=== PATIENT | female | born 1995 | race Caucasian/White ===

== ENCOUNTER 2016-10-09 19:42 | Inpatient (IN) | payer OTHER ==
[2016-10-09 20:26] LABS: Hematocrit 39 % (35-47); Hemoglobin 12.4 g/dl (12.0-16.0); Mean Corpuscular HGB Conc 32 g/dl (31-36); Mean Corpuscular Hemoglobin 29 pg (27-31); Mean Corpuscular Volume 91 fL (80-97); Mean Platelet Volume 9 um3 (7.4-10.4); Red Blood Count 4.24 10^6/ul (4.0-5.4); Red Cell Distribution Width 13 % (10.5-15); White Blood Count 25.8 10^3/ul (3.5-10.8)
[2016-10-09 20:30] LABS: Add Diff/Slide Review? Slide Review Added; Comments Flag Yes
[2016-10-09] MEDS ORDERED: NS 0.9% 1000 ML* 1,000 ML IV ONE (20:40)
[2016-10-09 20:48] LABS: ALT 17 U/L (7-52); AST 18 U/L (13-39); Albumin 4.2 g/dL (3.2-5.2); Alkaline Phosphatase 65 U/L (34-104); BUN/Creatinine Ratio 15.2 (8-20); Blood Urea Nitrogen 15 mg/dL (6-24); Calcium 8.7 mg/dL (8.6-10.3); Chloride 102 mmol/L (101-111); EGFR African American 89.4 (>60); EGFR Non-African American 69.5 (>60); Glucose 192 mg/dL (70-100); Sodium 134 mmol/L (133-145); Total Protein 7.2 g/dL (6.4-8.9)
[2016-10-09] MEDS ORDERED: Ondansetron INJ* 2 MG/ML VIAL ONE ×2 (20:49→21:47)
[2016-10-09] MEDS ORDERED: Ondansetron INJ* 2 MG/ML VIAL IV ONE ×2 (20:49→21:49)
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
[2016-10-09 20:52] LABS: Potassium 2.5 mmol/L (3.5-5.0)
[2016-10-09 20:54] LABS: Acetaminophen < 15 mcg/mL; Alcohol < 10 mg/dL (<10); Salicylate < 2.50 mg/dL (<30)
[2016-10-09 20:57] LABS: TSH (Thyroid Stimulating Horm) 1.31 mcIU/mL (0.34-5.60)
[2016-10-09] MEDS ORDERED: Potassium Chloride LIQUID* 20 MEQ PACKET PO ONE (20:58)
[2016-10-09 21:05] LABS: Anion Gap 21 mmol/L (2-11); CO2 Carbon Dioxide 11 mmol/L (22-32)
[2016-10-09] MEDS ORDERED: KCL 10 MEQ/50 ML IVPREMIX* 10 MEQ/50 ML BAG ONE (21:05)
--- NOTE | 2016-10-09 21:14 | RAD ---
INDICATION: Altered mental status COMPARISON: CT brain October 23, 2012 TECHNIQUE: Noncontrast axial source images were acquired from the skull base to the vertex. FINDINGS: Ventricles/sulci: The ventricles and cisterns are normal in size and configuration for age. Brain parenchyma: There is no focal parenchymal finding, evidence of intracranial mass, or intracranial mass effect. Intracranial hemorrhage:None. Extra-axial spaces: There are no abnormal extra axial fluid collections or evidence of extra-axial mass. Calvarium: There is no calvarial fracture or other calvarial abnormality. Scalp: There is no evidence of scalp or extracalvarial soft tissue abnormality. Paranasal sinuses/mastoid: The paranasal sinuses and mastoid air cells are clear. Other: None. IMPRESSION: NEGATIVE EXAMINATION
[2016-10-09] MEDS: KCL 10 MEQ/50 ML IVPREMIX* 10 MEQ/50 ML BAG IV SCH ×2 (21:16→22:25)
[2016-10-09 21:30] LABS: Magnesium 2.4 mg/dL (1.9-2.7)
[2016-10-09 21:38] LABS: Urine Bacteria Absent (Absent); Urine Bilirubin Negative (Negative); Urine Glucose Negative (Negative); Urine Nitrite Negative (Negative)
[2016-10-09 21:44] LABS: Benzodiazepine Urine Screen Presumptive Positive (None Detect)
[2016-10-09] MEDS ORDERED: Metoclopramide IV* 5 MG/ML 2 ML VIAL IV ONE (22:04)
[2016-10-09] MEDS ORDERED: Metoclopramide IV* 5 MG/ML 2 ML VIAL ONE (22:04)
[2016-10-09 22:19] LABS: FIO2 21; PCO2 Arterial 21 mmHg (35-45)
--- NOTE | 2016-10-09 22:30 | RAD ---
INDICATION: Fever COMPARISON: June 02, 2012 TECHNIQUE: PA and lateral dual-energy views were obtained. FINDINGS: Bones/Soft Tissues: There are no acute bony findings. Cardiomediastinal: The cardiomediastinal silhouette is normal. Lungs: There are no infiltrates. Pleura: There are no pleural effusions. Other: None IMPRESSION: NO ACTIVE DISEASE.
[2016-10-10 00:53] LABS: Hematocrit 32 % (35-47); Hemoglobin 10.8 g/dl (12.0-16.0); Mean Corpuscular HGB Conc 34 g/dl (31-36); Mean Corpuscular Hemoglobin 29 pg (27-31); Mean Corpuscular Volume 87 fL (80-97); Mean Platelet Volume 9 um3 (7.4-10.4); Red Cell Distribution Width 13 % (10.5-15); White Blood Count 22.6 10^3/ul (3.5-10.8)
[2016-10-10 00:56] LABS: Add Diff/Slide Review? Slide Review Added; Comments Flag Yes
[2016-10-10 01:04] LABS: BUN/Creatinine Ratio 18.1 (8-20); Calcium 8.4 mg/dL (8.6-10.3); EGFR African American 94.9 (>60); EGFR Non-African American 73.8 (>60); Potassium 3.3 mmol/L (3.5-5.0)
[2016-10-10 01:38] LABS: Albumin 3.5 g/dL (3.2-5.2); Globulin 2.6 g/dL (2-4); Total Bilirubin 0.7 mg/dL (0.2-1.0); Total Protein 6.1 g/dL (6.4-8.9)
[2016-10-10] MEDS: KCL 10 MEQ/50 ML IVPREMIX* 10 MEQ/50 ML BAG IV SCH (01:39)
[2016-10-10] MEDS: NS 0.9% 1000 ML* 1,000 ML IV SCH ×3 (03:21→23:45)
[2016-10-10 05:49] LABS: Hematocrit 32 % (35-47); Hemoglobin 10.8 g/dl (12.0-16.0); Mean Corpuscular HGB Conc 34 g/dl (31-36); Mean Corpuscular Hemoglobin 30 pg (27-31); Mean Corpuscular Volume 88 fL (80-97); Mean Platelet Volume 10 um3 (7.4-10.4); Red Blood Count 3.63 10^6/ul (4.0-5.4); Red Cell Distribution Width 13 % (10.5-15); White Blood Count 20.9 10^3/ul (3.5-10.8)
[2016-10-10 06:06] LABS: BUN/Creatinine Ratio 13.9 (8-20); Calcium 8.4 mg/dL (8.6-10.3); EGFR African American 61.4 (>60); EGFR Non-African American 47.8 (>60); Potassium 3.8 mmol/L (3.5-5.0)
[2016-10-10] MEDS: Ibuprofen TAB* 600 MG PO PRN ×2 (09:41→19:52)
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
[2016-10-10] MEDS: Nicotine PATCH 14 MG/24 HR* PATCH TRANSDERM SCH (17:07)
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
[2016-10-10] MEDS: Nicotine Patch Removal NOTE PATCH OFF SCH (20:33)
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
--- NOTE | 2016-10-11 01:25 | EEG ---
ELECTROENCEPHALOGRAPHY: DATE OF STUDY: 10/10/16 LOCATION: The patient is an inpatient. ORDERING PHYSICIAN: DICTATION ENDS ABRUPTLY HERE [id number]/[facility] #: [id number]
[2016-10-11] MEDS: Ibuprofen TAB* 600 MG PO PRN ×3 (02:30→16:22)
[2016-10-11 06:21] LABS: Hematocrit 33 % (35-47); Hemoglobin 11.1 g/dl (12.0-16.0); Mean Corpuscular HGB Conc 34 g/dl (31-36); Mean Corpuscular Hemoglobin 30 pg (27-31); Mean Corpuscular Volume 89 fL (80-97); Mean Platelet Volume 9 um3 (7.4-10.4); Red Blood Count 3.73 10^6/ul (4.0-5.4); Red Cell Distribution Width 14 % (10.5-15); White Blood Count 17.2 10^3/ul (3.5-10.8)
[2016-10-11 06:41] LABS: Albumin 3.1 g/dL (3.2-5.2); BUN/Creatinine Ratio 8.7 (8-20); Calcium 7.9 mg/dL (8.6-10.3); Direct Bilirubin 0.2 mg/dL (0.03-0.18); EGFR African American 35.9 (>60); Globulin 2.4 g/dL (2-4); Indirect Bilirubin 0.4 mg/dL (0.3-1.0); Potassium 3.2 mmol/L (3.5-5.0); Total Bilirubin 0.6 mg/dL (0.2-1.0); Total Protein 5.5 g/dL (6.4-8.9)
[2016-10-11] MEDS: Nicotine PATCH 14 MG/24 HR* PATCH TRANSDERM SCH (07:40)
[2016-10-11] MEDS: NS 0.9% 1000 ML* 1,000 ML IV SCH ×4 (07:41→18:04)
[2016-10-11] MEDS ORDERED: Potassium Chlor TAB* 20 MEQ TAB.ER PO ONE ×2 (13:45→21:50)
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
--- NOTE | 2016-10-11 14:21 | RAD ---
INDICATION: Renal failure COMPARISON: None TECHNIQUE: Longitudinal and transverse scans of the kidneys and bladder were obtained. FINDINGS: Kidneys: The kidneys are normal in size. There is mild increased echogenicity. No renal masses, calculi, or hydronephrosis is seen. The right kidney measures 12.2 x 4.8 x 5.0 cm and the left kidney 12.6 x 5.5 x 5.8 cm. Bladder: The bladder is partially distended. There are no intrinsic or extrinsic masses. The prevoid volume is 109 ml and the postvoid volume is for ml. Ureteral jets are document bilaterally. Other: None IMPRESSION: MILD INCREASED ECHOGENICITY OF THE KIDNEYS. NO HYDRONEPHROSIS. THE EXAMINATION IS OTHERWISE UNREMARKABLE..
[2016-10-11 15:51] LABS: EGFR African American 37.5 (>60); EGFR Non-African American 29.2 (>60); Potassium 3.1 mmol/L (3.5-5.0)
[2016-10-11] MEDS ORDERED: NS 0.9% 1000 ML* 1,000 ML IV ONE (16:32)
[2016-10-11] MEDS: Nicotine Patch Removal NOTE PATCH OFF SCH (21:36)
[2016-10-12] MEDS: Acetaminophen TAB* 325 MG PO PRN ×3 (00:21→16:24)
[2016-10-12 07:43] LABS: Hematocrit 33 % (35-47); Mean Corpuscular HGB Conc 33 g/dl (31-36); Mean Corpuscular Hemoglobin 30 pg (27-31); Mean Corpuscular Volume 90 fL (80-97); Mean Platelet Volume 10 um3 (7.4-10.4); Red Blood Count 3.68 10^6/ul (4.0-5.4); Red Cell Distribution Width 13 % (10.5-15); White Blood Count 12.3 10^3/ul (3.5-10.8)
[2016-10-12] MEDS: Nicotine PATCH 14 MG/24 HR* PATCH TRANSDERM SCH (07:51)
[2016-10-12 07:57] LABS: BUN/Creatinine Ratio 8.9 (8-20); Calcium 8.2 mg/dL (8.6-10.3); EGFR African American 48.2 (>60); EGFR Non-African American 37.5 (>60); Potassium 3.7 mmol/L (3.5-5.0)
[2016-10-12] MEDS: NS 0.9% 1000 ML* 1,000 ML IV SCH ×2 (13:23→22:25)
--- NOTE | 2016-10-12 15:08 | PN ---
Subjective Date of Service: 10/12/16 Interval History: Still describes muscles aching predominantly in thighs and back Thinks she may have had a cold in the last several weeks IV fell out and was not receiving fluids overnight until noon today I/O not collected accurately until this afternoon. Objective Active Medications: Acetaminophen (Tylenol Tab*) 650 mg PO Q6H PRN PRN Reason: PAIN Last Admin: 10/12/16 07:52 Dose: 650 mg Sodium Chloride (Ns 0.9% 1000 Ml*) 1,000 mls @ 250 mls/hr IV PER RATE [facility] Last Admin: 10/12/16 13:23 Dose: 250 mls/hr Nicotine (Nicotine Patch 14 Mg/24 Hr*) 1 patch TRANSDERM 0800 [facility] Last Admin: 10/12/16 07:51 Dose: 1 patch Pharmacy Profile Note (Nicotine Patch Removal Note*) 1 note PATCH OFF 2100 [facility] Last Admin: 10/11/16 21:36 Dose: 1 note Vital Signs 10/11/16 10/11/16 10/11/16 19:17 20:00 23:35 Temperature 98.0 F 98.5 F Pulse Rate 103 93 Respiratory 16 16 19 Rate Blood Pressure 135/84 144/92 (mmHg) O2 Sat by Pulse 98 93 Oximetry 10/12/16 10/12/16 07:36 08:00 Temperature 99.3 F Pulse Rate 93 Respiratory 16 18 Rate Blood Pressure 140/83 (mmHg) O2 Sat by Pulse 94 Oximetry Oxygen Devices in Use Now: None Appearance: NAD Eyes: No Scleral Icterus, PERRLA Ears/Nose/Mouth/Throat: NL Teeth, Lips, Gums, Clear Oropharnyx, Mucous Membranes Moist Neck: NL Appearance and Movements; NL JVP, Trachea Midline Respiratory: Symmetrical Chest Expansion and Respiratory Effort, Clear to Auscultation Cardiovascular: NL Sounds; No Murmurs; No JVD, RRR Abdominal: NL Sounds; No Tenderness; No Distention, No Hepatosplenomegaly Lymphatic: No Cervical Adenopathy, No Axillary Adenopathy Extremities: No Edema Skin: No Rash or Ulcers Neurological: Alert and Oriented x 3 Result Diagrams: 10/12/16 05:26 10/12/16 05:26 Additional Lab and Data: Lab Results 10/09/16 10/09/16 Range/Units 20:00 20:00 WBC 25.8 H (3.5-10.8) 10^3/ul RBC 4.24 (4.0-5.4) 10^6/ul Hgb 12.4 (12.0-16.0) g/dl Hct 39 (35-47) % MCV 91 (80-97) fL MCH 29 (27-31) pg MCHC 32 (31-36) g/dl RDW 13 (10.5-15) % Plt Count 322 (150-450) 10^3/ul MPV 9 (7.4-10.4) um3 Neut % (Auto) 80.6 (38-83) % Lymph % (Auto) 14.3 L (25-47) % [place] % (Auto) 4.1 (1-9) % Eos % (Auto) 0.4 (0-6) % Baso % (Auto) 0.6 (0-2) % Absolute Neuts (auto) 20.8 H (1.5-7.7) 10^3/ul Absolute Lymphs (auto) 3.7 (1.0-4.8) 10^3/ul Absolute Monos (auto) 1.1 H (0-0.8) 10^3/ul Absolute Eos (auto) 0.1 (0-0.6) 10^3/ul Absolute Basos (auto) 0.1 (0-0.2) 10^3/ul Absolute Nucleated RBC 0 10^3/ul Nucleated RBC % 0 Sodium 134 (133-145) mmol/L Potassium Pending Chloride 102 (101-111) mmol/L Carbon Dioxide Pending Anion Gap Pending BUN 15 (6-24) mg/dL Creatinine 0.99 H (0.51-0.95) mg/dL Est GFR ( Amer) 89.4 (>60) Est GFR (Non-Af Amer) 69.5 (>60) BUN/Creatinine Ratio 15.2 (8-20) Glucose 192 H (70-100) mg/dL Calcium 8.7 (8.6-10.3) mg/dL Total Bilirubin 0.40 (0.2-1.0) mg/dL AST 18 (13-39) U/L ALT 17 (7-52) U/L Alkaline Phosphatase 65 (34-104) U/L Total Protein 7.2 (6.4-8.9) g/dL Albumin 4.2 (3.2-5.2) g/dL Globulin 3.0 (2-4) g/dL Albumin/Globulin Ratio 1.4 (1-3) TSH Pending Salicylates Pending Acetaminophen Pending Serum Alcohol Pending Assess/Plan/Problems-Billing Assessment: 21 yo F h/o bulemia, heavy alcohol use, drug use including "hema" and cocaine, presents after found "flailing her arms around" on the road. EMS reports detail further events at time of arrival, please see scanned documents. - Patient Problems (1) Altered mental state Comment: Resolved without intervention Has elevated WBC without neck stiffness, fevers. Mental status resolved without intervention other than crystalloids. Given other substance abuse problems I do suspect other drug not screened for on our tests may have contributed to sudden change in mental status with complete resolution EEG wnl Monitor given elevated WBC. Abx if fails to improve, e/o infx, or fevers (2) Alcohol abuse Comment: counseled cessation drinks daily, sometimes at lunch when at work will not say how much she consumes daily pre contemplative (3) Acute kidney injury Comment: improved CK increasing Has Rhabdomyolysis Increase NS to 250cc/hr repeat CK tonight. NS restarted around noon (4) Polysubstance abuse Comment: counseled cessation (5) Bulimia Comment: follows with psych in [place] (6) DVT prophylaxis Comment: low risk ambulate ad zoë
[2016-10-12] MEDS ORDERED: Potassium Chlor TAB* 20 MEQ TAB.ER PO ONE (21:50)
[2016-10-12] MEDS: Nicotine Patch Removal NOTE PATCH OFF SCH (22:26)
[2016-10-13] MEDS: NS 0.9% 1000 ML* 1,000 ML IV SCH ×2 (02:43→07:15)
[2016-10-13] MEDS: diPHENhydraMINE PO* 25 MG PO PRN (04:31)
[2016-10-13] MEDS: Acetaminophen TAB* 325 MG PO PRN ×2 (04:33→21:31)
[2016-10-13 06:04] LABS: Hematocrit 30 % (35-47); Hemoglobin 10.1 g/dl (12.0-16.0); Mean Corpuscular HGB Conc 33 g/dl (31-36); Mean Corpuscular Hemoglobin 30 pg (27-31); Mean Corpuscular Volume 89 fL (80-97); Mean Platelet Volume 9 um3 (7.4-10.4); Red Blood Count 3.39 10^6/ul (4.0-5.4); Red Cell Distribution Width 13 % (10.5-15); White Blood Count 13.2 10^3/ul (3.5-10.8)
[2016-10-13 06:21] LABS: BUN/Creatinine Ratio 7.2 (8-20); Calcium 7.8 mg/dL (8.6-10.3); EGFR African American 68.3 (>60); EGFR Non-African American 53.1 (>60); Potassium 3.3 mmol/L (3.5-5.0)
--- NOTE | 2016-10-13 07:48 | RAD ---
INDICATION: Shortness of breath. COMPARISON: Comparison is made with a prior study from October 09, 2016. TECHNIQUE: A portable view of the chest was obtained. FINDINGS: Cardiac and mediastinal contours appear to be within normal limits. There are new faint patchy bilateral infiltrates. No pleural effusion is seen. IMPRESSION: NEW PATCHY BILATERAL INFILTRATES.
[2016-10-13] MEDS: Nicotine PATCH 14 MG/24 HR* PATCH TRANSDERM SCH (08:08)
[2016-10-13 08:40] LABS: C Reactive Protein 107.27 mg/L (< 5.00)
[2016-10-13] MEDS ORDERED: Vancomycin(*) 1,500 MG in NS 0.9% 250 ML* 250 ML IVPB ONE (09:00)
[2016-10-13] MEDS ORDERED: Vancomycin per Pharmacy* NOTE FOLLOW UP PRN (09:56)
[2016-10-13 10:17] LABS: Erythrocyte Sed Rate 72 mm/Hr (0-14)
[2016-10-13 15:38] LABS: Calcium 8.3 mg/dL (8.6-10.3); EGFR African American 75.2 (>60); EGFR Non-African American 58.5 (>60); Potassium 3.2 mmol/L (3.5-5.0)
[2016-10-13] MEDS ORDERED: Furosemide IV* 10 MG/ML VIAL (40 MG) IV SLOW PU ONE (16:26)
[2016-10-13] MEDS ORDERED: Potassium Chlor TAB* 20 MEQ TAB.ER PO ONE (16:31)
--- NOTE | 2016-10-13 16:37 | PN ---
Subjective Date of Service: 10/13/16 Interval History: Seen multiple times throughout the day Reported SOB overnight but none this AM Reported SOB this afternoon again Was placed on a safety monitor after she was heard vomiting in the bathroom then changed to bed alarm. Pt and mother upset about bed alarm because it is "increasing her anxiety." She promises not to vomit or use the bathroom without notifying staff. I declined to dc bed alarm at this time Pt has not been adherent with I/O. SHe takes out hat from urinal then "reports" how much she has been urinating. Only 800cc recorded over last 24 hr and patient reports "urinating a lot." Objective Active Medications: Acetaminophen (Tylenol Tab*) 650 mg PO Q6H PRN PRN Reason: PAIN Last Admin: 10/13/16 04:33 Dose: 650 mg Diphenhydramine HCl (Benadryl Po*) 25 mg PO BEDTIME PRN PRN Reason: INSOMNIA Last Admin: 10/13/16 04:31 Dose: 25 mg Lactated Ringer's (Lactated Ringers 1000 Ml Bag*) 1,000 mls @ 250 mls/hr IV PER RATE [facility] Last Admin: 10/13/16 14:29 Dose: 250 mls/hr Nicotine (Nicotine Patch 14 Mg/24 Hr*) 1 patch TRANSDERM 0800 [facility] Last Admin: 10/13/16 08:08 Dose: 1 patch Pharmacy Profile Note (Nicotine Patch Removal Note*) 1 note PATCH OFF 2100 [facility] Last Admin: 10/12/16 22:26 Dose: 1 note Potassium Chloride (Klor Con Er Tab*) 40 meq PO ONCE ONE Stop: 10/13/16 16:32 Vital Signs 10/12/16 10/12/16 10/12/16 19:43 20:00 23:24 Temperature 98.1 F 99.5 F Pulse Rate 118 103 Respiratory 28 16 Rate Blood Pressure 144/77 142/96 (mmHg) O2 Sat by Pulse 97 94 Oximetry 10/13/16 10/13/16 10/13/16 03:00 03:25 04:31 Temperature 98.6 F Pulse Rate 106 Respiratory 32 16 22 Rate Blood Pressure 145/102 (mmHg) O2 Sat by Pulse 90 Oximetry 10/13/16 10/13/16 10/13/16 06:31 07:39 09:44 Temperature 97.8 F Pulse Rate 85 Respiratory 28 16 18 Rate Blood Pressure 130/86 (mmHg) O2 Sat by Pulse 93 Oximetry 10/13/16 15:55 Temperature 99.0 F Pulse Rate 101 Respiratory 24 Rate Blood Pressure 155/90 (mmHg) O2 Sat by Pulse 91 Oximetry Oxygen Devices in Use Now: Nasal Cannula - 2L Appearance: NAD, anxious, talks in full sentences Eyes: No Scleral Icterus, PERRLA Ears/Nose/Mouth/Throat: Clear Oropharnyx, Mucous Membranes Moist Neck: NL Appearance and Movements; NL JVP, Trachea Midline Respiratory: Symmetrical Chest Expansion and Respiratory Effort, Clear to Auscultation, - - clear Cardiovascular: NL Sounds; No Murmurs; No JVD, RRR Abdominal: NL Sounds; No Tenderness; No Distention, No Hepatosplenomegaly Lymphatic: No Cervical Adenopathy Extremities: No Clubbing, Cyanosis, - - edematous in arms, mild tenderness in legs, Skin: - - bruising over wrists and upper arms Neurological: Alert and Oriented x 3 Result Diagrams: 10/13/16 05:32 10/13/16 14:57 Additional Lab and Data: Lab Results 10/09/16 10/09/16 Range/Units 20:00 20:00 WBC 25.8 H (3.5-10.8) 10^3/ul RBC 4.24 (4.0-5.4) 10^6/ul Hgb 12.4 (12.0-16.0) g/dl Hct 39 (35-47) % MCV 91 (80-97) fL MCH 29 (27-31) pg MCHC 32 (31-36) g/dl RDW 13 (10.5-15) % Plt Count 322 (150-450) 10^3/ul MPV 9 (7.4-10.4) um3 Neut % (Auto) 80.6 (38-83) % Lymph % (Auto) 14.3 L (25-47) % [place] % (Auto) 4.1 (1-9) % Eos % (Auto) 0.4 (0-6) % Baso % (Auto) 0.6 (0-2) % Absolute Neuts (auto) 20.8 H (1.5-7.7) 10^3/ul Absolute Lymphs (auto) 3.7 (1.0-4.8) 10^3/ul Absolute Monos (auto) 1.1 H (0-0.8) 10^3/ul Absolute Eos (auto) 0.1 (0-0.6) 10^3/ul Absolute Basos (auto) 0.1 (0-0.2) 10^3/ul Absolute Nucleated RBC 0 10^3/ul Nucleated RBC % 0 Sodium 134 (133-145) mmol/L Potassium Pending Chloride 102 (101-111) mmol/L Carbon Dioxide Pending Anion Gap Pending BUN 15 (6-24) mg/dL Creatinine 0.99 H (0.51-0.95) mg/dL Est GFR ( Amer) 89.4 (>60) Est GFR (Non-Af Amer) 69.5 (>60) BUN/Creatinine Ratio 15.2 (8-20) Glucose 192 H (70-100) mg/dL Calcium 8.7 (8.6-10.3) mg/dL Total Bilirubin 0.40 (0.2-1.0) mg/dL AST 18 (13-39) U/L ALT 17 (7-52) U/L Alkaline Phosphatase 65 (34-104) U/L Total Protein 7.2 (6.4-8.9) g/dL Albumin 4.2 (3.2-5.2) g/dL Globulin 3.0 (2-4) g/dL Albumin/Globulin Ratio 1.4 (1-3) TSH Pending Salicylates Pending Acetaminophen Pending Serum Alcohol Pending Assess/Plan/Problems-Billing Assessment: 21 yo F h/o bulemia, heavy alcohol use, drug use including "hema" and cocaine, presents after found "flailing her arms around" on the road. EMS reports detail further events at time of arrival, please see scanned documents. - Patient Problems (1) Rhabdomyolysis Comment: CK continues to increase unknown output based on I/O non adherence concern for drug effect No evidence of compartment syndrome on detailed exam unsure if ongoing bolemia can contribute. Now on bed alarm -Place zaragoza catheter, c/w lactated ringers (changed from NS due to hyperchloremic acidosis), lasix IV, bed alarm (2) Toxic encephalopathy Comment: Resolved without intervention Has elevated WBC without neck stiffness, fevers. Mental status resolved without intervention other than crystalloids. Given other substance abuse problems I do suspect other drug not screened for on our tests may have contributed to sudden change in mental status with complete resolution EEG wnl (3) Alcohol abuse Comment: counseled cessation drinks daily, sometimes at lunch when at work will not say how much she consumes daily pre contemplative (4) Acute kidney injury Comment: improved CK increasing Has Rhabdomyolysis c/w LR to 250cc/hr trend (5) Polysubstance abuse Comment: counseled cessation (6) Bulimia Comment: follows with psych in [place] bed alarm (7) DVT prophylaxis Comment: not ambulating start lovenox
[2016-10-13] MEDS: Enoxaparin(*) 40 MG/0.4 ML SYR SUBCUT SCH (17:25)
[2016-10-13] MEDS ORDERED: Vancomycin(*) 1,000 MG in NS 0.9% 250 ML* 250 ML IVPB SCH (17:30)
[2016-10-13] MEDS: Nicotine Patch Removal NOTE PATCH OFF SCH (21:32)
[2016-10-14] MEDS: Acetaminophen TAB* 325 MG PO PRN ×3 (03:54→18:24)
[2016-10-14] MEDS: Nicotine PATCH 14 MG/24 HR* PATCH TRANSDERM SCH (07:59)
[2016-10-14] MEDS ORDERED: Vancomycin Trough Check NOTE FOLLOW UP ONE (09:30)
[2016-10-14 10:17] LABS: Hematocrit 34 % (35-47); Hemoglobin 11.3 g/dl (12.0-16.0); Mean Corpuscular HGB Conc 33 g/dl (31-36); Mean Corpuscular Hemoglobin 29 pg (27-31); Mean Corpuscular Volume 88 fL (80-97); Mean Platelet Volume 9 um3 (7.4-10.4); Red Blood Count 3.88 10^6/ul (4.0-5.4); Red Cell Distribution Width 13 % (10.5-15); White Blood Count 11.8 10^3/ul (3.5-10.8)
[2016-10-14 10:34] LABS: Albumin 3.1 g/dL (3.2-5.2); BUN/Creatinine Ratio 7.1 (8-20); Calcium 8.5 mg/dL (8.6-10.3); EGFR African American 90.4 (>60); EGFR Non-African American 70.3 (>60); Globulin 3.1 g/dL (2-4); Magnesium 1.2 mg/dL (1.9-2.7); Potassium 2.8 mmol/L (3.5-5.0); Total Bilirubin 0.6 mg/dL (0.2-1.0); Total Protein 6.2 g/dL (6.4-8.9)
[2016-10-14] MEDS ORDERED: Potassium Chlor TAB* 20 MEQ TAB.ER PO ONE ×3 (10:41→20:00)
[2016-10-14 11:04] LABS: Vancomycin Trough 3.6 mcg/mL
--- NOTE | 2016-10-14 16:30 | PN ---
Subjective Date of Service: 10/14/16 Interval History: . Patient is asking for lasix to be given "just in case I get SOB like yesterday" . She currently denies SOB. No CP. No fevers or chills. Offers no complaints and is wondering when she can go home. Reports she is eating her meals and denies any vomiting today. Objective Active Medications: Acetaminophen (Tylenol Tab*) 650 mg PO Q6H PRN PRN Reason: PAIN Last Admin: 10/14/16 12:09 Dose: 650 mg Diphenhydramine HCl (Benadryl Po*) 25 mg PO BEDTIME PRN PRN Reason: INSOMNIA Last Admin: 10/13/16 04:31 Dose: 25 mg Enoxaparin Sodium (Lovenox(*)) 40 mg SUBCUT Q24H [facility] Last Admin: 10/13/16 17:25 Dose: 40 mg Lactated Ringer's (Lactated Ringers 1000 Ml Bag*) 1,000 mls @ 150 mls/hr IV PER RATE [facility] Last Admin: 10/14/16 14:59 Dose: 150 mls/hr Nicotine (Nicotine Patch 14 Mg/24 Hr*) 1 patch TRANSDERM 0800 [facility] Last Admin: 10/14/16 07:59 Dose: 1 patch Pharmacy Profile Note (Nicotine Patch Removal Note*) 1 note PATCH OFF 2100 [facility] Last Admin: 10/13/16 21:32 Dose: 1 note Potassium Chloride (Klor Con Er Tab*) 20 meq PO ONCE ONE Stop: 10/14/16 20:01 Vital Signs 10/13/16 10/13/16 10/13/16 19:18 20:00 23:52 Temperature 98.4 F 98.0 F Pulse Rate 99 99 Respiratory 24 24 16 Rate Blood Pressure 138/85 129/86 (mmHg) O2 Sat by Pulse 98 92 Oximetry 10/14/16 10/14/16 10/14/16 03:31 07:32 07:47 Temperature 98.0 F 97.6 F Pulse Rate 87 91 Respiratory 16 Rate Blood Pressure 133/82 147/87 (mmHg) O2 Sat by Pulse 90 89 91 Oximetry 10/14/16 15:39 Temperature 98.2 F Pulse Rate 97 Respiratory 20 Rate Blood Pressure 143/88 (mmHg) O2 Sat by Pulse 98 Oximetry Oxygen Devices in Use Now: Nasal Cannula - 2L Appearance: 21 yo female sitting up in bed A+O x3 in NAD, visiting with a friend Eyes: No Scleral Icterus, PERRLA Ears/Nose/Mouth/Throat: NL Teeth, Lips, Gums, Mucous Membranes Moist Neck: NL Appearance and Movements; NL JVP Respiratory: Symmetrical Chest Expansion and Respiratory Effort, Clear to Auscultation Cardiovascular: NL Sounds; No Murmurs; No JVD, RRR Abdominal: NL Sounds; No Tenderness; No Distention, - - obese Extremities: No Clubbing, Cyanosis, - - b/l hand appears 1+ edema Neurological: Alert and Oriented x 3, NL Sensation, NL Muscle Strength and Tone Lines/Tubes/Other Access: Clean, Dry and Intact Peripheral IV Nutrition: Taking PO's Result Diagrams: 10/14/16 09:58 10/14/16 09:58 Additional Lab and Data: Lab Results 10/09/16 10/09/16 Range/Units 20:00 20:00 WBC 25.8 H (3.5-10.8) 10^3/ul RBC 4.24 (4.0-5.4) 10^6/ul Hgb 12.4 (12.0-16.0) g/dl Hct 39 (35-47) % MCV 91 (80-97) fL MCH 29 (27-31) pg MCHC 32 (31-36) g/dl RDW 13 (10.5-15) % Plt Count 322 (150-450) 10^3/ul MPV 9 (7.4-10.4) um3 Neut % (Auto) 80.6 (38-83) % Lymph % (Auto) 14.3 L (25-47) % [place] % (Auto) 4.1 (1-9) % Eos % (Auto) 0.4 (0-6) % Baso % (Auto) 0.6 (0-2) % Absolute Neuts (auto) 20.8 H (1.5-7.7) 10^3/ul Absolute Lymphs (auto) 3.7 (1.0-4.8) 10^3/ul Absolute Monos (auto) 1.1 H (0-0.8) 10^3/ul Absolute Eos (auto) 0.1 (0-0.6) 10^3/ul Absolute Basos (auto) 0.1 (0-0.2) 10^3/ul Absolute Nucleated RBC 0 10^3/ul Nucleated RBC % 0 Sodium 134 (133-145) mmol/L Potassium Pending Chloride 102 (101-111) mmol/L Carbon Dioxide Pending Anion Gap Pending BUN 15 (6-24) mg/dL Creatinine 0.99 H (0.51-0.95) mg/dL Est GFR ( Amer) 89.4 (>60) Est GFR (Non-Af Amer) 69.5 (>60) BUN/Creatinine Ratio 15.2 (8-20) Glucose 192 H (70-100) mg/dL Calcium 8.7 (8.6-10.3) mg/dL Total Bilirubin 0.40 (0.2-1.0) mg/dL AST 18 (13-39) U/L ALT 17 (7-52) U/L Alkaline Phosphatase 65 (34-104) U/L Total Protein 7.2 (6.4-8.9) g/dL Albumin 4.2 (3.2-5.2) g/dL Globulin 3.0 (2-4) g/dL Albumin/Globulin Ratio 1.4 (1-3) TSH Pending Salicylates Pending Acetaminophen Pending Serum Alcohol Pending Assess/Plan/Problems-Billing Assessment: 21 yo F h/o bulemia, heavy alcohol use, drug use including "hema" and cocaine, presents after found "flailing her arms around" on the road. EMS reports detail further events at time of arrival, please see scanned documents. - Patient Problems (1) Rhabdomyolysis Comment: CK trending down No evidence of compartment syndrome -Continue zaragoza catheter, c/w lactated ringers decrease rate 150 ml/hr (changed from NS 10/13 due to hyperchloremic acidosis) -Repeat CK in am (2) Acute kidney injury Comment: improving c/w LR to 150cc/hr Recheck in am (3) Toxic encephalopathy Comment: Resolved without intervention EEG wnl (4) Alcohol abuse Comment: discussed with patient, counseled cessation drinks daily, sometimes at lunch when at work will not say how much she consumes daily (5) Bulimia Comment: Denies vomiting today follows with psych in [place] bed alarm (6) Polysubstance abuse Comment: counseled cessation (7) DVT prophylaxis Comment: not ambulating start lovenox Status and Disposition: inpatient with rhabdo and [facility]. Home when medically stable.
[2016-10-14] MEDS: Enoxaparin(*) 40 MG/0.4 ML SYR SUBCUT SCH (17:27)
[2016-10-14 18:30] LABS: BUN/Creatinine Ratio 7.9 (8-20); Calcium 8.4 mg/dL (8.6-10.3); EGFR African American 101.1 (>60); EGFR Non-African American 78.6 (>60); Potassium 3.1 mmol/L (3.5-5.0)
[2016-10-14] MEDS ORDERED: Furosemide IV* 10 MG/ML 2 ML VIAL (20 MG) IV ONE (18:30)
[2016-10-14] MEDS: Nicotine Patch Removal NOTE PATCH OFF SCH (20:53)
[2016-10-14] MEDS: diPHENhydraMINE PO* 25 MG PO PRN (22:28)
[2016-10-15] MEDS: Acetaminophen TAB* 325 MG PO PRN ×2 (04:04→10:14)
[2016-10-15 07:45] VITALS: BP 131/72
[2016-10-15 07:53] LABS: Hematocrit 31 % (35-47); Hemoglobin 10.4 g/dl (12.0-16.0); Mean Corpuscular HGB Conc 34 g/dl (31-36); Mean Corpuscular Hemoglobin 30 pg (27-31); Mean Corpuscular Volume 87 fL (80-97); Mean Platelet Volume 9 um3 (7.4-10.4); Red Blood Count 3.52 10^6/ul (4.0-5.4); Red Cell Distribution Width 14 % (10.5-15); White Blood Count 13.6 10^3/ul (3.5-10.8)
[2016-10-15 08:12] LABS: BUN/Creatinine Ratio 7.8 (8-20); Calcium 8.3 mg/dL (8.6-10.3); EGFR African American 119.5 (>60); EGFR Non-African American 92.9 (>60); Magnesium 1.4 mg/dL (1.9-2.7); Potassium 3.3 mmol/L (3.5-5.0)
[2016-10-15] MEDS: Nicotine PATCH 14 MG/24 HR* PATCH TRANSDERM SCH (09:20)
[2016-10-15] MEDS ORDERED: Potassium Chlor TAB* 20 MEQ TAB.ER PO ONE ×2 (10:18→12:16)
--- NOTE | 2016-10-15 10:20 | PN ---
Subjective Date of Service: 10/15/16 Interval History: . Patient reports she "feels fine and would love to go home". Denies any complaints. Had a long conversation with pt and her mother about her substance abuse problems and Bulimia. Patient reports this was a "big wake up call" and states she is going to stop drinking for awhile and has not vomited since prior to coming to hospital (even though nurses suspected she vomited a few days ago pt denies this). She reports she doesnt think she needs regular therapy and does follow with someone she sees occasionally. She was strongly encouraged to follow up within one week and see them on a regular basis. Discussed discharge plan to increase her fluid intake. She denies SOB, CP. No fever or chills. Objective Active Medications: Acetaminophen (Tylenol Tab*) 650 mg PO Q6H PRN PRN Reason: PAIN Last Admin: 10/15/16 10:14 Dose: 650 mg Diphenhydramine HCl (Benadryl Po*) 25 mg PO BEDTIME PRN PRN Reason: INSOMNIA Last Admin: 10/14/16 22:28 Dose: 25 mg Enoxaparin Sodium (Lovenox(*)) 40 mg SUBCUT Q24H [facility] Last Admin: 10/14/16 17:27 Dose: 40 mg Lactated Ringer's (Lactated Ringers 1000 Ml Bag*) 1,000 mls @ 150 mls/hr IV PER RATE [facility] Last Admin: 10/15/16 05:00 Dose: 150 mls/hr Magnesium Sulfate 3 gm/ Sodium (Chloride) 106 mls @ 53 mls/hr IVPB ONCE ONE Stop: 10/15/16 12:59 Potassium Chloride (Potassium Chloride 20 Meq/100 Ml Ivprem[facility]*) 20 meq in 100 mls @ 50 mls/hr IV Q2H [facility] Stop: 10/15/16 14:59 Nicotine (Nicotine Patch 14 Mg/24 Hr*) 1 patch TRANSDERM 0800 [facility] Last Admin: 10/15/16 09:20 Dose: Not Given Pharmacy Profile Note (Nicotine Patch Removal Note*) 1 note PATCH OFF 2100 [facility] Last Admin: 10/14/16 20:53 Dose: Not Given Vital Signs 10/14/16 10/14/16 10/14/16 15:39 20:00 22:28 Temperature 98.2 F Pulse Rate 97 Respiratory 20 20 22 Rate Blood Pressure 143/88 (mmHg) O2 Sat by Pulse 98 Oximetry 10/14/16 10/15/16 10/15/16 23:37 00:28 07:44 Temperature 98.7 F 98.9 F Pulse Rate 96 97 Respiratory 19 20 Rate Blood Pressure 126/72 131/72 (mmHg) O2 Sat by Pulse 98 91 Oximetry Oxygen Devices in Use Now: Nasal Cannula - 2L Appearance: 21 yo female sitting up in a chair in NAD> A+O x3 Eyes: No Scleral Icterus, PERRLA Ears/Nose/Mouth/Throat: NL Teeth, Lips, Gums, Mucous Membranes Moist Neck: NL Appearance and Movements; NL JVP Respiratory: Symmetrical Chest Expansion and Respiratory Effort, Clear to Auscultation Cardiovascular: NL Sounds; No Murmurs; No JVD, RRR Abdominal: NL Sounds; No Tenderness; No Distention Extremities: No Clubbing, Cyanosis, - - mild b/l hand edema Skin: No Rash or Ulcers, No Nodules or Sclerosis Neurological: Alert and Oriented x 3, NL Sensation, NL Gait, NL Muscle Strength and Tone Lines/Tubes/Other Access: Clean, Dry and Intact Peripheral IV Nutrition: Taking PO's Result Diagrams: 10/15/16 07:05 10/15/16 07:05 Additional Lab and Data: Lab Results 10/09/16 10/09/16 Range/Units 20:00 20:00 WBC 25.8 H (3.5-10.8) 10^3/ul RBC 4.24 (4.0-5.4) 10^6/ul Hgb 12.4 (12.0-16.0) g/dl Hct 39 (35-47) % MCV 91 (80-97) fL MCH 29 (27-31) pg MCHC 32 (31-36) g/dl RDW 13 (10.5-15) % Plt Count 322 (150-450) 10^3/ul MPV 9 (7.4-10.4) um3 Neut % (Auto) 80.6 (38-83) % Lymph % (Auto) 14.3 L (25-47) % [place] % (Auto) 4.1 (1-9) % Eos % (Auto) 0.4 (0-6) % Baso % (Auto) 0.6 (0-2) % Absolute Neuts (auto) 20.8 H (1.5-7.7) 10^3/ul Absolute Lymphs (auto) 3.7 (1.0-4.8) 10^3/ul Absolute Monos (auto) 1.1 H (0-0.8) 10^3/ul Absolute Eos (auto) 0.1 (0-0.6) 10^3/ul Absolute Basos (auto) 0.1 (0-0.2) 10^3/ul Absolute Nucleated RBC 0 10^3/ul Nucleated RBC % 0 Sodium 134 (133-145) mmol/L Potassium Pending Chloride 102 (101-111) mmol/L Carbon Dioxide Pending Anion Gap Pending BUN 15 (6-24) mg/dL Creatinine 0.99 H (0.51-0.95) mg/dL Est GFR ( Amer) 89.4 (>60) Est GFR (Non-Af Amer) 69.5 (>60) BUN/Creatinine Ratio 15.2 (8-20) Glucose 192 H (70-100) mg/dL Calcium 8.7 (8.6-10.3) mg/dL Total Bilirubin 0.40 (0.2-1.0) mg/dL AST 18 (13-39) U/L ALT 17 (7-52) U/L Alkaline Phosphatase 65 (34-104) U/L Total Protein 7.2 (6.4-8.9) g/dL Albumin 4.2 (3.2-5.2) g/dL Globulin 3.0 (2-4) g/dL Albumin/Globulin Ratio 1.4 (1-3) TSH Pending Salicylates Pending Acetaminophen Pending Serum Alcohol Pending Assess/Plan/Problems-Billing Assessment: 21 yo F h/o bulemia, heavy alcohol use, drug use including "hema" and cocaine, presents after found "flailing her arms around" on the road. EMS reports detail further events at time of arrival, please see scanned documents. - Patient Problems (1) Rhabdomyolysis Comment: CK trending down, Discussed with attending Physician Dr. Lemus who agrees with the plan to DC to home with encouraging increased water intake (2) Acute kidney injury Comment: Resolved (3) Electrolyte abnormality Comment: - give replacement - plan for mag+ and K+ at DC and recheck labs in 2 days. (4) Toxic encephalopathy Comment: Resolved without intervention EEG wnl (5) Alcohol abuse Comment: discussed with patient, counseled cessation Strongly encouraged patient to follow closely with therapist (6) Bulimia Comment: Denies vomiting today follows with psych in [place] (7) Polysubstance abuse Comment: counseled cessation (8) DVT prophylaxis Comment: ambulating Status and Disposition: inpatient with rhabdo and [facility]. Home today
[2016-10-15] MEDS ORDERED: KCL 20 MEQ/100 ML IVPREMIX* 20 MEQ/100 ML BAG IV SCH (11:00)
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
== END 2016-10-15 13:35 | disposition home or self-care (01) | DRG 917 ==
LOC: ED 19:42 → MEDTELE 10-10 01:16 → MED 10-11 15:02 → OBSVTOIN 10-11 15:57
PROVIDERS: ADMIT Internal Medicine; ATTEND Internal Medicine
DX: T40.5X4A Poisoning by cocaine, undetermined, initial encounter (principal); G92 Toxic encephalopathy; N17.9 Acute kidney failure, unspecified; M62.82 Rhabdomyolysis; F50.2 Bulimia nervosa; F19.10 Other psychoactive substance abuse, uncomplicated; R41.82 Altered mental status, unspecified; Y92.9 Unspecified place or not applicable; F10.10 Alcohol abuse, uncomplicated; Y90.0 Blood alcohol level of less than 20 mg/100 ml; F32.9 Major depressive disorder, single episode, unspecified; F41.9 Anxiety disorder, unspecified; F42.9 Obsessive-compulsive disorder, unspecified; F17.210 Nicotine dependence, cigarettes, uncomplicated; E86.0 Dehydration; R09.02 Hypoxemia
CPT/HCPCS: 36415; 36600; 70450; 71010; 71020; 76770; 80048; 80053; 80076; 80202; 80307; 80320; 80329; 81003; 81015; 82550; 82570; 82803; 83605; 83735; 84145; 84156; 84443; 85025; 85652; 86140; 93005; 95819; A9270-GY; G0378; G0480; J1650; J1940; J2405; J3370; J3475; J3480

== ENCOUNTER 2018-10-21 14:42 | Emergency (ER) | payer SELFPAY ==
[2018-10-21 15:16] VITALS: BP 129/78
--- NOTE | 2018-10-21 15:20 | UC ---
Respiratory Complaint HPI - HPI Summary HPI Summary: 23 y/o female presents to the urgent care c/o productive cough w/ green phlegm for the past 1.5 weeks. She has been taking OTC medication w/o any improvement and today she started w/ subjective low grade fever, body aches. Symptoms started w/ a common cold and then cough developed. Pt deneis SOB, wheezing, chest pain, abdominal pain, N/V/d, dizziness, neck pain, or rash - History of Current Complaint Chief Complaint: UCRespiratory Stated Complaint: URI Time Seen by Provider: 10/21/18 15:19 Hx Obtained From: Patient Hx Last Menstrual Period: 2 weeks Onset/Duration: Gradual Onset, Lasting Weeks - 1.5weeks, Still Present, Worse Since - 3 days Timing: Intermittent Episodes Severity Initially: Mild Severity Currently: Moderate Pain Intensity: 4 Pain Scale Used: 0-10 Numeric Character: Cough: Productive, Sputum Description: - green Aggravating Factors: Recumbent Position Alleviating Factors: OTC Meds - Nyquill and Dayquil PO Associated Signs And Symptoms: Positive: Chills, URI, Nasal Congestion, Sinus Discomfort. Negative: Fever, Wheezing, Hoarseness - Risk Factors Pulmonary Embolism Risk Factors: Negative Cardiac Risk Factors: Negative Pseudomonas Risk Factors: Negative Tuberculosis Risk Factors: Negative - Allergies/Home Medications Allergies/Adverse Reactions: Allergies Allergy/AdvReac Type Severity Reaction Status Date / Time No Known Allergies Allergy Verified 10/21/18 15:16 PMH/Surg Hx/FS Hx/Imm Hx Previously Healthy: Yes - Pt denies PMHX - Surgical History Surgical History: None - Family History Family History: lung cancer - Social History Occupation: Employed Full-time Lives: With Family Alcohol Use: Daily Alcohol Amount: "A DECENT AMOUNT" Substance Use Type: Marijuana Smoking Status (MU): Light Every Day Tobacco Smoker Type: Cigarettes When Did the Patient Quit Smoking/Using Tobacco: 1 year ago - Immunization History Most Recent Tetanus Shot: Unsure Review of Systems All Other Systems Reviewed And Are Negative: Yes Constitutional: Positive: Negative Skin: Positive: Negative Eyes: Positive: Negative ENT: Positive: Negative, Sore Throat - mild, Nasal Discharge - yellowish/green, Sinus Congestion Respiratory: Positive: Cough - productive w/ green phlegm Cardiovascular: Positive: Negative Gastrointestinal: Positive: Negative Genitourinary: Positive: Negative Motor: Positive: Negative Neurovascular: Positive: Negative Musculoskeletal: Positive: Negative Neurological: Positive: Negative Psychological: Positive: Negative Is Patient Immunocompromised?: No Physical Exam - Summary Physical Exam Summary: Vital Signs Reviewed: Yes General: well developed, well nourished female sitting in the examining table w/ o any apparent distress Eyes: Positive: Conjunctiva Clear - PERRLA, EOMI, fundi grossly normal ENT: Positive: Normal ENT inspection, Hearing grossly normal, Pharynx normal, Nasal congestion - edematous and erythematous nasal mucosa, Nasal drainage - yellowish drainage, TMs normal. Negative: Tonsillar swelling, Tonsillar exudate Neck: Positive: Supple, Nontender, No Lymphadenopathy Respiratory: no orthopnea or dyspnea. Able to speak in full sentences, no retractions or accessory muscle use, no tripod position, stridor, or head bobbing. Positive breath sounds bilaterally. diffuse scattered rhonchi on b/L lungs, no wheezing, no crackles or rales. Cardiovascular: Positive: RRR, No Murmur, Pulses Normal, Brisk Capillary Refill Abdomen Description: Positive: Nontender, No Organomegaly, Soft. Negative: CVA Tenderness (R), CVA Tenderness (L) Bowel Sounds: Positive: Present Musculoskeletal Exam: Normal Musculoskeletal: Positive: Strength Intact, ROM Intact, No Edema Neurological Exam: Normal Psychological Exam: Normal Skin Exam: Normal Triage Information Reviewed: Yes Vital Signs: Initial Vital Signs Temp 100.2 F 10/21/18 15:13 Pulse 79 10/21/18 15:13 Resp 16 10/21/18 15:13 BP 129/78 10/21/18 15:13 Pulse Ox 100 10/21/18 15:13 Respiratory Course/Dx - Course Course Of Treatment: 23 y/o female presents to the urgent care c/o productive cough w/ green phlegm for the past 1.5 weeks. She has been taking OTC medication w/o any improvement and today she started w/ subjective low grade fever, body aches. Symptoms started w/ a common cold and then cough developed. Pt deneis SOB, wheezing, chest pain, abdominal pain, N/V/d, dizziness, neck pain, or rash. Hx obtained. Pt w/ diffuse scattered rhonchi on b/L lungs, no wheezing, no crackles or rales on examiantion. Pt is hemodynamically stable, O2Sat:100%. Pt declined Chest - Xray and ibuprofen PO. Pt with Acute bronchitis on examination. Pt Rx Z-misty PO . Pt advised to increase fluid intake and eat well. if not improvement or worsening of symptoms to return to the urgent care or f/u with PCP for further management. pt understood and agreed with plan of care. - Differential Dx/Diagnosis Differential Diagnosis/HQI/PQRI: Asthma, Bronchitis, Influenza, Lower Resp Infection, Sinusitis, Other - pharyngitis Provider Diagnosis: Acute bronchitis Discharge - Sign-Out/Discharge Documenting (check all that apply): Patient Departure - D/c home All imaging exams completed and their final reports reviewed: No Studies - Discharge Plan Condition: Stable Disposition: HOME Prescriptions: Azithromyxin MISTY (NF) [Z-Misty (Zithromax) 250 mg tabs #6] 2 tab PO .TODAY, THEN 1 DAILY #6 tab Patient Education Materials: Acute Bronchitis (ED) Forms: *Work Release Referrals: [facility] [Outside] Additional Instructions: 1-Please take full course of antibiotic to avoid resistance. Starting tomorrow night 2-Continue taking Dayquill PO to alleviate symptoms. Increase fluid intake, rest and eat well. Take Tylenol PO or Ibuprofen to alleviate fever. 3- If symptoms do not improve or worsen or your develop SOB with fever and severe cough please go immediately to the ER further evaluation and treatment. 4-Please f/u w/ your PCP in 3 days if not improvement of symptoms - Billing Disposition and Condition Condition: STABLE Disposition: Home
== END 2018-10-21 16:00 | disposition home or self-care (01) ==
LOC: UCEAST 14:42
DX: J20.9 Acute bronchitis, unspecified (principal); F17.210 Nicotine dependence, cigarettes, uncomplicated
CPT/HCPCS: 99202; G0463

== ENCOUNTER 2019-03-21 13:09 | Emergency (ER) | payer OTHER ==
--- OUTSIDE RECORDS SUMMARY | 2019-03-21 13:16 | XMS REPORT | Continuity of Care Document ---
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 [employer] [phone] Medicine Problems Description No Information Available Social History Type Date Description Comments Sex Unknown Tobacco Use Start: Unknown Light tobacco smoker (10 or fewer cigarettes/day) Smoking Status Reviewed: 10/04/17 Light tobacco smoker (10 or fewer cigarettes/day) Allergies, Adverse Reactions, Alerts Description No Known Drug Allergies Medications Active Medications SIG Qnty Indications Ordering Provider Date Fluoxetine HCL Take 3 Capsules 270caps Jose D Villarreal 10/11/2017 20mg By Mouth Daily MD Kory Capsules Medications Administered in Office Medication SIG Qnty Indications Ordering Provider Date Brief Emotional/Behav SHYANNE Gillespie 01/25/2018 Assessment W/ Scoring Doc Per Standard Inst Injection Immunizations CPT Code Status Date Vaccine Lot # [id number] Given 03/06/2019 Tdap Tetanus, W Pertussis 525NP Vital Signs Date Vital Result Comment 03/06/2019 10:09am BP Systolic 134 mmHg BP Diastolic 82 mmHg Heart Rate 84 /min Body Temperature 97.9 F Height 62 inches 5'2" 192 Weight 171.00 lb BMI (Body Mass Index) 31.3 kg/m2 01/25/2018 10:40am BP Systolic 124 mmHg BP Diastolic 82 mmHg Heart Rate 78 /min Body Temperature 97.7 F Height 62 inches 5'2" 192 Weight 186.00 lb BMI (Body Mass Index) 34.0 kg/m2 Results Description No Information Available Procedures Description No Information Available Medical Devices Description No Information Available Encounters Description No Information Available Assessments Date Code Description Provider 03/06/2019 F42.9 Obsessive-compulsive disorder, unspecified SHYANNE Gillespie 03/06/2019 Z23 Encounter for immunization SHYANNE Gillespie 03/06/2019 Z00.00 Encounter for general adult medical SHYANNE Gillespie examination without abnormal findings 03/06/2019 Z71.6 Tobacco abuse counseling SHYANNE Gillespie Plan of Treatment 03/06/2019 - SHYANNE GillespieF42.9 Obsessive-compulsive disorder, [id number] Encounter for [id number] Encounter for general adult medical examination without abnormal findingsFollow up:well woman exam [id number] Tobacco abuse counseling Functional Status Description No Information Available Mental Status Description No Information Available Referrals Description No Information Available
--- NOTE | 2019-03-21 13:24 | UC ---
Abdominal Pain Female HPI - HPI Summary HPI Summary: 23 yo female presents with periumbilical pain. She tells me that for the last week she has had pain and aches in her periumbilical region with some intermittent nausea. She thinks this is related to her bowel movements as she mentions she has been irregular for a long time. Most recently has days of small hard stools with occasional episodes of loose stools, but feels that she never complete evacuates her bowels as appropriate. She has been taking stool softeners this week and did have a BM last night, but states it still wasn't "right" - also did not change her abdominal discomfort. Pain is not changed with eating or drinking. She mentions that she does kratom almost daily - last use was yesterday. LMP was 1.5 weeks ago. She denies fever, chills, vomiting, recent illness, dysuria, vaginal discharge or bleeding. No back pain. - History of Current Complaint Stated Complaint: ABDOMINAL PAIN Time Seen by Provider: 03/21/19 13:23 Hx Obtained From: Patient Hx Last Menstrual Period: 2 weeks Onset/Duration: Gradual Onset Severity Initially: Mild Severity Currently: Moderate Pain Intensity: 5 Pain Scale Used: 0-10 Numeric Allergies/Adverse Reactions: Allergies Allergy/AdvReac Type Severity Reaction Status Date / Time No Known Allergies Allergy Verified 03/21/19 13:35 PMH/Surg Hx/FS Hx/Imm Hx - Additional Past Medical History Additional PMH: Drug abuse Anxiety - Surgical History Surgical History: None - Family History Known Family History: Positive: Other Family History: lung cancer - Social History Lives: With Family Alcohol Use: Daily Alcohol Amount: "A DECENT AMOUNT" Substance Use Type: Marijuana, Synthetic Drugs Smoking Status (MU): Light Every Day Tobacco Smoker Type: Cigarettes When Did the Patient Quit Smoking/Using Tobacco: 1 year ago - Immunization History Most Recent Tetanus Shot: Unsure Review of Systems All Other Systems Reviewed And Are Negative: No Constitutional: Positive: Negative Skin: Positive: Negative Respiratory: Positive: Negative Cardiovascular: Positive: Negative Gastrointestinal: Positive: Abdominal Pain, Nausea Genitourinary: Positive: Negative Motor: Positive: Negative Neurovascular: Positive: Negative Musculoskeletal: Positive: Negative Neurological: Positive: Negative Psychological: Positive: Negative Physical Exam - Summary Physical Exam Summary: GENERAL: NAD. WDWN. No pain distress. SKIN: No rashes, sores, lesions, or open wounds. NECK: Supple. Nontender. No lymphadenopathy. CHEST: CTAB. No r/r/w. No accessory muscle use. Breathing comfortably and in no distress. CV: RRR. Without m/r/g. Pulses intact. Cap refill <2seconds ABDOMEN: Mild TTP about inferior umbilicus. Soft. No distention or guarding. No organomegaly. No CVA tenderness. Bowel sounds present MSK: NTTP lumbar spine. FROM without pain. Negative SLR b/l. Strength 5/5 B/L LEs including dorsiflexion and plantar flexion. FROM B/L LEs. No edema. NEURO: Alert. Sensations intact L3-S1 b/l PSYCH: Age appropriate behavior. Triage Information Reviewed: Yes Vital Signs: Vital Signs: Temp Pulse Resp BP Pulse Ox 98.8 F 62 14 132/82 100 03/21/19 13:32 03/21/19 13:32 03/21/19 13:32 03/21/19 13:32 03/21/19 13:32 Laboratory Tests 03/21/19 03/21/19 14:00 14:01 POC Urine Color Yaima POC Urine Clarity Slightly cloudy POC Urine pH 5.5 POC Ur Specif [place] >= 1.030 POC Urine Protein Negative POC Ur Glucose (UA) Negative POC Urine Ketones Negative POC Urine Blood Negative POC Urine Nitrite Negative POC Urine Bilirubin Negative POC Urine Urobilinogen 0.2 POC U Leukocyte Esteras Negative POC Ur Test Negative Vital Signs Reviewed: Yes Diagnostics - Radiology CT ab/pelv Radiology Interpretation Completed By: Radiologist Summary of Radiographic Findings: IMPRESSION: 1. RIGHT NEPHROLITHIASIS WITHOUT HYDRONEPHROSIS. 2. 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 Abd Pain Female Course/Dx - Course Course Of Treatment: UA and negative. CT findings as above. Pt declined pelvic exam today as she has no vaginal discharge/bleeding. I discussed with pt that her exam and testing today did not reveal a finding that correlates with her symptoms. She continues to stress that she believes her discomfort is related to her bowels. 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 I recommended that she go to the ER for further evaluation given her history of electrolyte disturbances, WAYNE, and polysubstance abuse. She did not want to do this and prefers to try a medication. I am reluctant to prescribe or recommend any laxatives, as she has already taken stool softeners and had a BM with no change. Will try her with bentyl. Encouraged that if her symptoms do not improve or worsen - to go to the ER for a further workup. Pt voiced understanding and agrees with the plan. - Differential Dx/Diagnosis Provider Diagnosis: Periumbilical pain Discharge ED - Sign-Out/Discharge Documenting (check all that apply): Patient Departure All imaging exams completed and their final reports reviewed: Yes - Discharge Plan Condition: Stable Disposition: HOME-RECOMMEND TO ED Prescriptions: Dicyclomine CAP* [Bentyl CAP*] 10 mg PO TID #30 cap Patient Education Materials: Abdominal Pain (ED) Referrals: No Primary Care Phys,NOPCP [Primary Care Provider] - [facility] [Provider Group] - 2 Weeks Additional Instructions: Your urine and CT scan today do not reveal any causes of your abdominal pain. I recommend that you go to the ER for further evaluation. If you do not want to go to the ER today, please try the prescription sent to the pharmacy for you and if your pain does not improve or worsens - please go to the ER - Billing Disposition and Condition Condition: STABLE Disposition: Home-Recommend to ED
[2019-03-21 13:35] VITALS: BP 132/82
== END 2019-03-21 14:30 | disposition home health service (06) ==
LOC: UCEAST 13:09
DX: R10.33 Periumbilical pain (principal); R11.0 Nausea; N20.0 Calculus of kidney; M47.817 Spondylosis without myelopathy or radiculopathy, lumbosacral region; M43.17 Spondylolisthesis, lumbosacral region; Z32.02 Encounter for pregnancy test, result negative; F17.200 Nicotine dependence, unspecified, uncomplicated
CPT/HCPCS: 74176; 81003; 84702; 99212; G0463

== ENCOUNTER 2019-03-21 20:17 | Emergency (ER) | payer OTHER ==
[2019-03-21 21:46] LABS: Hematocrit 39 % (35-47); Mean Corpuscular HGB Conc 34 g/dL (31-36); Mean Corpuscular Hemoglobin 30 pg (27-31); Mean Corpuscular Volume 89 fL (80-97); Mean Platelet Volume 8.4 fL (7.4-10.4); Platelet Count 279 10^3/uL (150-450); Red Blood Count 4.36 10^6 /uL (3.70-4.87); Red Cell Distribution Width 13 % (10-15); White Blood Count 14.7 10^3/uL (3.5-10.8)
[2019-03-21 22:03] LABS: ALT 21 U/L (7-52); AST 16 U/L (13-39); Albumin 4.2 g/dL (3.2-5.2); Albumin/Globulin Ratio 1.8 (1-3); Alkaline Phosphatase 54 U/L (34-104); Anion Gap 6 mmol/L (2-11); BUN/Creatinine Ratio 25.8 (8-20); Blood Urea Nitrogen 16 mg/dL (6-24); C Reactive Protein 4.33 mg/L (<8.01); CO2 Carbon Dioxide 23 mmol/L (22-32); Calcium 8.9 mg/dL (8.6-10.3); Chloride 105 mmol/L (101-111); EGFR African American 141.9 (>60); EGFR Non-African American 117.3 (>60); Globulin 2.4 g/dL (2-4); Glucose 118 mg/dL (70-100); Potassium 3.8 mmol/L (3.5-5.0); Sodium 134 mmol/L (135-145); Total Protein 6.6 g/dL (6.4-8.9)
[2019-03-21 22:09] LABS: HCG Pregnancy < 0.60 mIU/mL
[2019-03-21 22:14] LABS: ABS Eosinophils 2.8 10^3/ul (0-0.6); ABS Lymphocytes 2.2 10^3/ul (1.0-4.8); ABS Monocytes 0.6 10^3/ul (0-0.8); Eosinophil % 19.3 %; Lymphocyte % 15.1 %
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
[2019-03-21 23:36] LABS: Urine Appearance Cloudy; Urine Bilirubin Negative (Negative); Urine Blood Negative (Negative); Urine Color Yellow; Urine Glucose Negative (Negative); Urine Ketones Negative (Negative); Urine Nitrite Negative (Negative); Urine Protein Negative (Negative); Urine Specific Gravity 1.027 (1.010-1.030); Urine Urobilinogen Negative (Negative)
[2019-03-21 23:50] VITALS: BP 139/91
== END 2019-03-21 23:50 | disposition home or self-care (01) ==
LOC: ED 20:17
DX: R10.9 Unspecified abdominal pain (principal); F41.9 Anxiety disorder, unspecified; F90.9 Attention-deficit hyperactivity disorder, unspecified type; F17.210 Nicotine dependence, cigarettes, uncomplicated; Z79.899 Other long term (current) drug therapy
CPT/HCPCS: 36415; 80053; 81003; 83605; 83690; 84702; 85025; 86140; 99282